=== PATIENT | female | born 1990 | race African-American/Black ===

== ENCOUNTER 2017-04-30 16:22 | Emergency (ER) | payer OTHER ==
[2017-04-30 16:48] VITALS: BP 109/68; PULSE 79; TEMP 98.6; BMI 21.0
[2017-04-30] MEDS ORDERED: predniSONE 20 MG TABLET (UD) PO ONE (18:05)
[2017-04-30] MEDS ORDERED: ALBUTEROL SO4 2.5/IPRATROPIUM 0.5 INH SOL 3 ML VIAL.NEB. NEB ONE ×2 (18:05→18:07)
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
[2017-04-30] MEDS ORDERED: predniSONE 20 MG TABLET (UD) ONE (18:07)
== END 2017-04-30 19:06 | disposition home or self-care (01) ==
LOC: JERFT 16:22
PROC: 3E0F7GC Introduction of Other Therapeutic Substance into Respiratory Tract, Via Natural or Artificial Opening (ICD-10-PCS; principal; 2017-04-30)
DX: J45.909 Unspecified asthma, uncomplicated (principal)
CPT/HCPCS: 94640; 99281-25

== ENCOUNTER 2019-05-05 17:44 | Emergency (ER) | payer OTHER ==
--- NOTE | 2019-05-05 18:10 | PDOC ---
Rapid Medical Evaluation Time Seen by Provider: 05/05/19 17:57 Medical Evaluation: Allergies Allergy/AdvReac Type Severity Reaction Status Date / Time influenza virus vaccine ts AdvReac Severe Swelling Verified 04/30/17 16:42 2012- [From Fluarix] 05/05/19 17:57 CC:brought by window caser for depression. Uses THC. Denies SI/HI/PI/AH/VH. No passive SI. +belief in God. PE: no focal findings Orders: nothing The patient will proceed to the ER for continued Evaluation. Discharge Disposition - Diagnosis Depression - Referrals - Patient Instructions - Post Discharge Activity
[2019-05-05 18:11] VITALS: BMI 20.1
--- NOTE | 2019-05-05 19:09 | PDOC ---
Attending Attestation - Resident Resident Name: Jean Son - ED Attending Attestation I have performed the following: I have examined & evaluated the patient, The case was reviewed & discussed with the resident, I agree w/resident's findings & plan, Exceptions are as noted - HPI HPI: 05/05/19 19:20 28-year-old female presents with her spring encaser for medical clearance. Her mother kicked her out after she found her using PCP. She has no plan for suicide or homicide. - Physicial Exam PE: 05/05/19 19:21 Thin 28-year-old female sitting on the gurney in no acute distress Head normocephalic atraumatic Neck is supple Lungs are clear to auscultation bilaterally CVS regular rate and rhythm S1-S2 Abdomen is flat, nontender Skin is warm and dry Neuro alert and oriented x3, ambulatory Psych slightly anxious - Medical Decision Making 05/05/19 19:22 Patient does have a history of problems with PCP and marijuana and is currently in a day program for drug abuse 05/05/19 22:04 negative preg test pt has a spring encaser pt 's labs were normal pt came for concern of cough but has no fever,lungs are cta b/l
--- NOTE | 2019-05-05 19:15 | PDOC ---
History of Present Illness - General Chief Complaint: Depression Stated Complaint: DEPRESSION Time Seen by Provider: 05/05/19 17:57 History Source: Patient Exam Limitations: No Limitations - History of Present Illness Initial Comments: 05/08/19 07:34 HPI: 28F who denies PMH presenting w/ sore throat and depressed mood. Pt has been using PCP and marijuana w/ last use yesterday. Was "kicked out" of her home because of PCP use yesterday and is currently homeless. Pt states she is sad and has low energy but does not endorse SI/plan, HI, AVH. Denies usage of other drugs. Pt's pillowcase maker is at bedside. Sore throat w/ cough since today w/o f/c /runny nose. Past History - Past Medical History Allergies/Adverse Reactions: Allergies Allergy/AdvReac Type Severity Reaction Status Date / Time Penicillins Allergy Mild Itching Verified 05/05/19 18:45 influenza virus vaccine ts AdvReac Severe Swelling Verified 05/05/19 18:11 [From Fluarix] Home Medications: Ambulatory Orders NK [No Known Home Medication] 05/05/19 Asthma: Yes COPD: No - Psycho Social/Smoking Cessation Hx Smoking History: Never smoked Number of Cigarettes Smoked Daily: 3 'Breaking Loose' booklet given: 04/30/17 Hx Alcohol Use: No Drug/Substance Use Hx: Yes (PCP) Substance Use Type: None Review of Systems - Review of Systems Able to Perform ROS?: Yes Comments:: 05/08/19 07:34 ROS: CONSTITUTIONAL: Denies F / C HEENT: Endorses itchy/sore throat. Denies rhinorrhea. RESP: Endorses cough. Denies SOB, orthopnea, NAIR CARD: Denies chest pain, palpitations GI: Denies N / V / D, abdominal pain, inability to tolerate PO : Denies dysuria, frequency SKIN: Denies rashes PSYCH: Denies SI/HI/AVH. NEURO: Denies numbness, tingling, weakness Is the patient limited Italian proficient: No *Physical Exam - Vital Signs Last Vital Signs Temp Pulse Resp BP Pulse Ox 98 F 63 18 115/52 L 98 05/05/19 17:56 05/05/19 17:56 05/05/19 17:56 05/05/19 17:56 05/05/19 17:56 - Physical Exam Comments: 05/08/19 07:35 PE: GEN: Slightly disheveled, NAD. AAOx3 HEENT: NC/AT, EOMI, PERRLA. No facial asymmetry. Moist mucous membranes, nonerythematous oropharynx w/o exudate. Normal voice. Supple neck w/ FROM. CV: S1/S2, RRR, no m/r/g LUNG: CTAB, no wheezes, crackles, rales, rhonchi. GI: soft, ndnt, +BS, no guarding, no rebound. No masses. EXTREMITIES: No obvious deformities of all extremities. SKIN: warm, dry, normal turgor PSYCH: labile mood and affect. NEURO: Moving all extremities well. ED Treatment Course - LABORATORY CBC & Chemistry Diagram: 05/05/19 19:45 05/05/19 19:45 Medical Decision Making - Medical Decision Making 05/05/19 19:27 MDM: 28F w/ depressed mood w/o SI/HI/AVH. Current PCP use but in an outpatient detox program. Recently undomiciled 2/2 PCP use. Sore throat and cough w/o fever or pharyngeal erythema; likely viral. - CBC, CMP, - reassurance - likely dc home w/ psych, pcp f/u, return precautions 05/05/19 20:57 labs reviewed DC as above tylenol po for itchy/sore throat Discharge - Discharge Information Problems reviewed: Yes Clinical Impression/Diagnosis: Depression Qualifiers: Depression Type: reactive depression Qualified Code(s): F32.9 - Major depressive disorder, single episode, unspecified Condition: Stable Disposition: HOME - Follow up/Referral Referrals: Sherri Robles MD [Staff Physician] - - Patient Discharge Instructions Patient Printed Discharge Instructions: DI for Depression -- Adult Additional Instructions: You were evaluated in the Emergency Department As discussed in the Emergency Department, picking machine operator helper the prescription that your Psychiatrist had sent you. Continue the outpatient program you participate in. Follow up with your psychiatrist in the next 1-2 days. You may call the psychiatrist (Dr. Robles) we provided and schedule an appointment as an alternative. Follow up with your primary care doctor in the next 2-4 days. Continue to work with your case management worker. IMMEDIATELY return to the nearest Emergency Department if you experience any of the following: - thoughts of harming yourself or others - inability to eat or drink - ANYTHING that concerns you - Post Discharge Activity Work/Back to School Note: My Personal Safety Plan
[2019-05-05 20:02] LABS: BASO % 0.5 % (0-2.0); EOS % 1.8 % (0-4.5); HEMATOCRIT 43.4 % (32.4-45.2); HEMOGLOBIN 14.2 GM/dL (10.7-15.3); LYMPH % 23.8 % (8-40); MCH 28.9 pg (25.7-33.7); MCHC 32.7 g/dl (32.0-36.0); MEAN CELL VOLUME 88.3 fl (80-96); MEAN PLT VOLUME 8.1 fl (7.5-11.1); MONO % 5.5 % (3.8-10.2); NEUT % 68.4 % (42.8-82.8); PLATELET COUNT 294 K/MM3 (134-434); RBC 4.92 M/mm3 (3.60-5.2); RDW 13.5 % (11.6-15.6); WHITE BLOOD COUNT 9.7 K/mm3 (4.0-10.0)
[2019-05-05 20:21] LABS: ALBUMIN 4.4 g/dl (3.4-5.0); BILIRUBIN,TOTAL 0.5 mg/dL (0.2-1); BLOOD UREA NITROGEN 13.1 mg/dL (7-18); CALCIUM 9.2 mg/dL (8.5-10.1); CREATININE 0.8 mg/dL (0.55-1.3); POTASSIUM 3.8 mmol/L (3.5-5.1); TOT PROT 7.6 g/dl (6.4-8.2)
[2019-05-05] MEDS ORDERED: ACETAMINOPHEN 500 MG TABLET (FP) PO ONE (21:21)
[2019-05-05] MEDS ORDERED: ACETAMINOPHEN 325 MG TABLET (FP) ONE (21:27)
[2019-05-05 21:35] VITALS: BP 114/73; PULSE 75; TEMP 97.8
== END 2019-05-05 22:28 | disposition home or self-care (01) ==
LOC: JER 17:44
DX: F32.9 Major depressive disorder, single episode, unspecified (principal); F16.10 Hallucinogen abuse, uncomplicated; Z59.0 Homelessness; Z88.0 Allergy status to penicillin; Z88.7 Allergy status to serum and vaccine
CPT/HCPCS: 36415; 80053; 84703; 85025; 99285-25

== ENCOUNTER 2019-07-25 01:18 | Emergency (ER) | payer OTHER ==
[2019-07-25 02:10] VITALS: BMI 19.2
[2019-07-25] MEDS ORDERED: FOLIC ACID INJECTION - 1 MG, THIAMINE HCL 100 MG, MULTIVIT INJECTION ADULT 10 ML in SOD... IVPB ONE (04:28)
[2019-07-25] MEDS ORDERED: SODIUM CHLORIDE 0.9% 500 ML INFUS.BAG IV ONE (04:28)
--- NOTE | 2019-07-25 04:49 | PDOC ---
History of Present Illness - General Chief Complaint: Substance Abuse Stated Complaint: BODYACHES, DRUG ABUSE Time Seen by Provider: 07/25/19 04:27 History Source: Patient Exam Limitations: No Limitations - History of Present Illness Initial Comments: Bess Paulson is a 28 yo F w a hx of depression and polysubstance abuse who presents to the [facility] er stating she has been using too much PCP and wants to goto rehab. She felt a strong desire to use PCP tonight and decided it was the right decision not to use PCP and to come to [facility] er for help. She states she has not used any drugs in the past 2 days and she feels like she has body aches and does not feel well. She denies alcohol abuse. Denies nausea, vomiting, fevers. Denies chest pain, SOB, difficulty breathing. PCP: None PSH: None reported Social Hx: Denies ever using any IV drugs. Denies alcohol. Endorses frequent PCP use with marijuana Allergies: penicillins, flu vaccine Past History - Past Medical History Allergies/Adverse Reactions: Allergies Allergy/AdvReac Type Severity Reaction Status Date / Time Penicillins Allergy Mild Itching Verified 07/25/19 02:02 influenza virus vaccine ts AdvReac Severe Swelling Verified 07/25/19 02:02 [From Fluarix] Home Medications: Ambulatory Orders NK [No Known Home Medication] 05/05/19 Asthma: Yes COPD: No - Psycho Social/Smoking Cessation Hx Smoking History: Current every day smoker Have you smoked in the past 12 months: Yes Number of Cigarettes Smoked Daily: 8 Information on smoking cessation initiated: No 'Breaking Loose' booklet given: 04/30/17 Hx Alcohol Use: Yes Drug/Substance Use Hx: Yes Substance Use Type: None Review of Systems - Review of Systems Able to Perform ROS?: Yes Comments:: CONSTITUTIONAL: Present: chills, fatigue Absent: fever EYES: Absent: visual changes ENT: Absent: ear pain, no sore throat CARDIOVASCULAR: Absent: chest pain, no palpitations RESPIRATORY: Absent: cough, no SOB GI: Absent: abdominal pain, no nausea, no vomiting, no constipation, no diarrhea GENITOURINARY: Absent: dysuria, no frequency, no hematuria MUSKULOSKELETAL: Present: Myalgia Absent: back pain, no arthralgia SKIN: Absent: rash NEURO: Absent: headache *Physical Exam - Vital Signs Last Vital Signs Temp Pulse Resp BP Pulse Ox 98.2 F 78 20 118/67 99 07/25/19 01:20 07/25/19 01:20 07/25/19 01:20 07/25/19 01:20 07/25/19 01:20 - Physical Exam GENERAL: Well-appearing, well-nourished. Mild distress. HEENT: Normocephalic, atraumatic. PERRL, EOM intact. CARDIOVASCULAR: Normal S1, S2. Regular rate and rhythm. PULMONARY: No evidence of respiratory distress. Lungs clear to auscultation bilaterally. No wheezing, rales or rhonchi. ABDOMEN: Soft, non-distended, non-tender. EXTREMITIES: There are no track sorensen. Normal ROM in all four extremities. No gross deformities. SKIN: Warm, dry. No rash NEUROLOGICAL: No focal neurological deficits. ED Treatment Course - LABORATORY CBC & Chemistry Diagram: 07/25/19 04:47 07/25/19 04:47 Medical Decision Making - Medical Decision Making Bess Paulson is a 28 yo F w a hx of depression and polysubstance abuse who presents to the [facility] er stating she has been using too much PCP and wants to goto rehab. She felt a strong desire to use PCP tonight and decided it was the right decision not to use PCP and to come to [facility] er for help. She states she has not used any drugs in the past 2 days and she feels like she has body aches and does not feel well. Vital Signs Temp Pulse Resp BP Pulse Ox 98.2 F 78 20 118/67 99 07/25/19 01:20 07/25/19 01:20 07/25/19 01:20 07/25/19 01:20 07/25/19 01:20 DDx IBNLT: Alcohol withdrawal, polysubstance abuse, electrolyte/metabolic derrangement Plan: Labs, EKG, urine, IV hydration, rehab referaall I have called up [facility] and spoke with Nursing Electrical Engineering Technician Jono. She states because this patient uses PCP she needs rehab and [facility] does not admit rehab patients on the weekend. She states she will need to come back on Saturday and they can admit her for rehab. "PCP is rehab - they will not accept this patient bc they do not admit to rehab on the weekends. " Labs: Unremarkable - positive for PCP and marijuana Urine: Trace ketones Disposition: Rehab on saturday. Return precautions discussed if patient feels need to start re-using. Discharge - Discharge Information Problems reviewed: Yes Clinical Impression/Diagnosis: Phencyclidine (PCP) use disorder, mild Condition: Improved Disposition: HOME - Admission No - Follow up/Referral Referrals: Juana Lassiter [Primary Care Provider] - - Patient Discharge Instructions Patient Printed Discharge Instructions: Substance Use Disorder Additional Instructions: You came into the ER because you were thinking about using PCP. This is wonderful that you came to the ER and did not use PCP. We did all your lab work and have you prepared to [facility] this week on Saturday or Saturday as they cannot admit rehab patients over the weekend. Come back to the ER immediately with any new or worsening concerns or if you feel the need to start using again Print Language: SLOVAK - Post Discharge Activity
[2019-07-25 05:33] LABS: BASO % 0.3 % (0-2.0); EOS % 1.7 % (0-4.5); HEMATOCRIT 38.8 % (32.4-45.2); HEMOGLOBIN 12.9 GM/dL (10.7-15.3); LYMPH % 43.1 % (8-40); MCH 28.9 pg (25.7-33.7); MCHC 33.2 g/dl (32.0-36.0); MEAN CELL VOLUME 87.2 fl (80-96); MEAN PLT VOLUME 7.6 fl (7.5-11.1); MONO % 7.5 % (3.8-10.2); NEUT % 47.4 % (42.8-82.8); PLATELET COUNT 399 K/MM3 (134-434); RBC 4.45 M/mm3 (3.60-5.2); RDW 13.2 % (11.6-15.6); WHITE BLOOD COUNT 6.8 K/mm3 (4.0-10.0)
[2019-07-25 05:40] LABS: EPI CELLS >36 /HPF (0-5/HPF); HYALINE CASTS 24 /lpf (0-8); PH,URINE 5.5 (5.0-8.0); URINE APPEARANCE TURBID; URINE BACTERIA 927.9 /hpf (NEGATIVE); URINE BILIRUBIN 1+ (NEGATIVE); URINE COLOR DK YELLOW; URINE GLUCOSE (UA) NEGATIVE (NEGATIVE); URINE KETONE TRACE (NEGATIVE); URINE LEUK ESTERASE TRACE (NEGATIVE); URINE NITRITE NEGATIVE (NEGATIVE); URINE PROTEIN 1+ (NEGATIVE); URINE RBC 7 /hpf (0-4); URINE WBC 24 /hpf (0-5)
[2019-07-25 05:47] LABS: COCAINE, UR NEGATIVE ng/ml (CUTOFF=300); METHADONE, UR NEGATIVE ng/ml (CUTOFF=300); OPIATES, URI NEGATIVE ng/ml (CUTOFF=300); URINE AMPHETAMINES NEGATIVE ng/ml (CUTOFF=500); URINE BARBITURATES NEGATIVE ng/ml (CUTOFF=200); URINE BENZODIAZEPINES NEGATIVE ng/ml (CUTOFF=200)
[2019-07-25 05:50] LABS: PHENCYCLIDINE,URINE POSITIVE ng/ml (CUTOFF=25)
--- NOTE | 2019-07-25 06:14 | PDOC ---
Attending Attestation - Resident Resident Name: Jc Coreas - ED Attending Attestation I have performed the following: I have examined & evaluated the patient, The case was reviewed & discussed with the resident, I agree w/resident's findings & plan - HPI HPI: 07/25/19 06:43 Pt states that she used PCP and POT to "self medicate" as she was having pain from her in May. When I ask why she doesn't use motrin or tylenol she says she doesn't know. - Physicial Exam PE: 07/25/19 06:44 Agree with resident exam. Pt is afebrile VSS tatoos on her hands and arms. No rashes Heart [id number] CTA B abd soft NT ND no flank pain ext no edema - Medical Decision Making 07/25/19 06:13 PCP+ POT+ Pt has normal CBC UA has plenty of bacteria and small leukicytes 07/25/19 06:14 CHEM negative 07/25/19 06:27 CHEM normal 07/25/19 06:46 Pt will go to [facility] rehab on Saturday -Saturday, as they need to call her insurance for prior authorization. 07/25/19 19:58
[2019-07-25 06:21] LABS: ALBUMIN 4.1 g/dl (3.4-5.0); ALK PHOS 43 U/L (45-117); ANION GAP 6 MMOL/L (8-16); BILIRUBIN,TOTAL 0.7 mg/dL (0.2-1); CALCIUM 9.2 mg/dL (8.5-10.1); CHLORIDE 107 mmol/L (98-107); CO2 27 mmol/L (21-32); CREATININE 0.9 mg/dL (0.55-1.3); GLUCOSE,RANDOM 91 mg/dL (74-106); POTASSIUM 3.7 mmol/L (3.5-5.1); SGOT/AST 14 U/L (15-37); SGPT/ALT 14 U/L (13-61); SODIUM 140 mmol/L (136-145)
[2019-07-25 06:33] VITALS: BP 112/74; PULSE 71; TEMP 17
--- NOTE | 2019-07-25 10:43 | EKG ---
Test Reason : Blood Pressure : / mmHG Vent. Rate : 063 BPM Atrial Rate : 063 BPM P-R Int : 142 ms QRS Dur : 066 ms QT Int : 450 ms P-R-T Axes : 062 076 060 degrees QTc Int : 460 ms NORMAL SINUS RHYTHM WITH SINUS ARRHYTHMIA NORMAL ECG NO PREVIOUS ECGS AVAILABLE Confirmed by SHEBA GARCIA MD ([id number]) on 07/25/2019 10:43:17 AM Referred By: Confirmed By:SHEBA GARCIA MD
== END 2019-07-25 07:00 | disposition home or self-care (01) ==
LOC: JER 01:18
PROC: 3E033GC Introduction of Other Therapeutic Substance into Peripheral Vein, Percutaneous Approach (ICD-10-PCS; principal; 2019-07-25)
DX: F16.10 Hallucinogen abuse, uncomplicated (principal); F12.10 Cannabis abuse, uncomplicated; Z88.0 Allergy status to penicillin; Z88.7 Allergy status to serum and vaccine
CPT/HCPCS: 36415; 80053; 80307; 81003; 85025; 93005; 93010; 96365; 96366; 99283-25; J7030

== ENCOUNTER 2020-05-13 14:19 | Emergency (ER) | payer OTHER ==
[2020-05-13 14:38] VITALS: BP 99/65; PULSE 70; TEMP 98.2; BMI 21.0
== END 2020-05-13 15:25 | disposition home or self-care (01) ==
LOC: JERFT 14:19
PROC: 0W9N0ZZ Drainage of Female Perineum, Open Approach (ICD-10-PCS; principal; 2020-05-13)
DX: N76.4 Abscess of vulva (principal)
CPT/HCPCS: 99284-25

== ENCOUNTER 2020-05-16 11:32 | Emergency (ER) | payer OTHER ==
[2020-05-16 12:40] VITALS: BP 102/54; PULSE 78; TEMP 98.1; BMI 21.0
[2020-05-16] MEDS ORDERED: IBUPROFEN 400 MG TABLET (FP) PO ONE ×2 (13:39→13:42)
== END 2020-05-16 14:01 | disposition home or self-care (01) ==
LOC: JERFT 11:32
DX: N76.4 Abscess of vulva (principal)
CPT/HCPCS: 99283-25

== ENCOUNTER 2021-11-22 20:20 | Emergency (ER) | payer OTHER ==
[2021-11-22 21:10] VITALS: BP 108/72; PULSE 73; TEMP 98.1; BMI 19.0
[2021-11-22] MEDS ORDERED: IBUPROFEN 600 MG TABLET (FP) PO ONE ×2 (21:39→21:40)
[2021-11-22] MEDS ORDERED: LEVONORGESTREL 1.5 MG TABLET (PLAN B ONE-STEP) PO (21:39)
== END 2021-11-22 21:54 | disposition home or self-care (01) ==
LOC: JERFT 20:20
DX: S01.511A Laceration without foreign body of lip, initial encounter (principal)
CPT/HCPCS: 99283-25

== ENCOUNTER 2022-01-06 00:36 | Emergency (ER) | payer OTHER ==
[2022-01-06 01:03] VITALS: BP 106/77; PULSE 67; TEMP 98; BMI 21.0
== END 2022-01-06 04:26 | disposition left against medical advice (07) ==
LOC: JER 00:36
DX: S41.102A Unspecified open wound of left upper arm, initial encounter (principal)
CPT/HCPCS: 99283-25; 99284-25